=== PATIENT | female | born 1985 | race Hispanic/Latino ===

== ENCOUNTER 2016-11-20 00:36 | Observation (INO) | payer MEDICAID ==
[2016-11-20 01:16] LABS: ALB/GLOB RATIO 1.2 (1.0-2.1); ALBUMIN 4.1 g/dL (3.5-5.0); ALT/SGPT 65 U/L (9-52); AST/SGOT 65 U/L (14-36); BLOOD UREA NITROGEN 13 mg/dl (7-17); CALCIUM 8.6 mg/dL (8.4-10.2); GFR AFRICAN-AMERICAN > 60; GFR NON-AFRICAN AMERICAN > 60
--- NOTE | 2016-11-20 01:29 | ED PDOC ---
HPI: Psych/Substance Abuse Time Seen by Provider: 11/20/16 00:40 Chief Complaint (Nursing): Alcohol Ingestion Chief Complaint (Provider): intoxication ED Caveat: Intoxicated, Other (unwilling to answer questions ) History Per: Patient History/Exam Limitations: intoxication, other (unwilling to answer questions ) Onset/Duration Of Symptoms: Mins Current Symptoms Are (Timing): Still Present Additional Complaint(s): 31yo female presents to the ED for eval of public intoxication with possible drug abuse. Patient unwilling to answer questions. No medical or psychiatric complaints. Past Medical History Reviewed: Historical Data, Nursing Documentation, Vital Signs, Unable To Obtain (unwilling to answer questions ) Vital Signs: Last Vital Signs Temp 98.5 F 11/20/16 00:40 Pulse 82 11/20/16 00:40 Resp 17 11/20/16 00:40 BP 106/65 11/20/16 00:40 Pulse Ox 99 11/20/16 00:40 - Family History Family History: States: No Known Family Hx - Home Medications Home Medications: Ambulatory Orders Medication Instructions Recorded Unobtainable 11/20/16 - Allergies Allergies/Adverse Reactions: Allergies Allergy/AdvReac Type Severity Reaction Status Date / Time Unobtainable Allergy Verified 11/20/16 00:45 Review of Systems Review Of Systems: ROS cannot be obtained secondary to pt's inabilty to answer questions. (unwilling to answer questions) Physical Exam - Reviewed Nursing Documentation Reviewed: Yes Vital Signs Reviewed: Yes - Physical Exam Appears: Positive for: Well, No Acute Distress Head Exam: Positive for: ATRAUMATIC, NORMAL INSPECTION, NORMOCEPHALIC Skin: Positive for: Normal Color, Warm, Dry Eye Exam: Positive for: Normal appearance, EOMI, PERRL ENT: Positive for: Normal ENT Inspection Neck: Positive for: Normal, Painless ROM, Supple Cardiovascular/Chest: Positive for: Regular Rate, Rhythm. Negative for: Murmur , Tachycardia Respiratory: Positive for: Normal Breath Sounds. Negative for: Wheezing, Respiratory Distress Gastrointestinal/Abdominal: Positive for: Normal Exam, Soft. Negative for: Tenderness Back: Positive for: Normal Inspection Extremity: Positive for: Normal ROM. Negative for: Deformity, Swelling Neurologic/Psych: Negative for: Alert (somnolent but arousable ) - Laboratory Results Result Diagrams: 11/20/16 01:05 11/20/16 01:05 - ECG O2 Sat by Pulse Oximetry: 99 Pulse Ox Interpretation: Normal (RA) Medical Decision Making Medical Decision Makin: Impression: 31yo intoxicated female Plan: Labs reassess 0200: Blood alcohol level at 637. CT head and banana bag ordered. Case discussed with Dr. Earl for obs med/surg placement. Dx: alcohol intoxication fair Scribe Attestation: Documented by Pravin Garcia acting as a scribe for Murphy Gray MD. Provider Scribe Attestation: All medical record entries made by the Scribe were at my direction and personally dictated by me. I have reviewed the chart and agree that the record accurately reflects my personal performance of the history, physical exam, medical decision making, and the department course for this patient. I have also personally directed, reviewed, and agree with the discharge instructions and disposition. Disposition - Clinical Impression Clinical Impression: Alcohol intoxication - Patient ED Disposition Is Patient to be Admitted: Yes Discussed With : Rivas Earl - Disposition Disposition Time: 02:00 Condition: FAIR - Pt Status Changed To: Hospital Disposition Of: Observation
[2016-11-20 01:46] LABS: BASO # 0.1 K/uL (0.0-0.2); BASO % 1.3 % (0.0-2.0); EOS # 0.2 K/uL (0.0-0.7); EOS % 2.4 % (0.0-4.0); HEMOGLOBIN 12.2 g/dL (12.0-16.0); LYMPH # 3.9 K/uL (1.0-4.3); LYMPH % 43.8 % (20.0-40.0); MEAN CELL VOLUME 103.2 fl (81.0-99.0); MEAN CORPUSCULAR HEMOGLOBIN 35.3 pg (27.0-31.0); MEAN CORPUSCULAR HGB CONC 34.2 g/dL (33.0-37.0); MEAN PLATELET VOLUME 7.5 fl (7.2-11.7); MONO # 0.5 K/uL (0.0-0.8); MONO % 5.7 % (0.0-10.0); NEUT # 4.1 K/uL (1.8-7.0); NEUT % 46.8 % (50.0-75.0); NRBC % 0.2 % (0.0-0.0); RBC 3.45 Mil/uL (3.80-5.20); RED CELL DISTRIBUTION WIDTH 14.8 % (11.5-14.5); WHITE BLOOD COUNT 8.8 K/uL (4.8-10.8)
[2016-11-20] MEDS ORDERED: Multivitamin (MVI) 10 ML, Folic Acid 1 MG, Thiamine 100 MG in Dextrose 5%/0.45% NS 1,00... IV ONE (01:55)
[2016-11-20 02:22] LABS: BARBITURATES, UR NEGATIVE (NEGATIVE)
[2016-11-20 02:23] LABS: BENZODIAZEPINES, UR NEGATIVE (NEGATIVE)
[2016-11-20 02:25] LABS: OPIATES, UR NEGATIVE (NEGATIVE)
[2016-11-20 02:26] LABS: PHENCYCLIDINE, UR NEGATIVE (NEGATIVE)
--- NOTE | 2016-11-20 02:45 | CP.PCM.HP ---
History of Present Illness - History of Present Illness History of Present Illness: PCP: Unable to obtain Chief complaint: Public Intoxication HPI: The hx is obtained from the Medical records as the patient is very sleepy and refusing to talk. She is a 31 years old female brought to the ED by the police who found her sleeping on the train with Alcohol and other Paraphernalias found on the scene.In the ED the patient responded to questioning but refused to answer Questions. No apparent medical complaints. PMH: Unobtainable because of patient's condition PSH: Unobtainable SH: Unknown Smoking and Alcohol Hx , Unknown Illegal drug hx, Fh: Unknown family hx Allergies: Unknown allergies Present on Admission - Present on Admission Any Indicators Present on Admission: No History of DVT/PE: No History of Uncontrolled Diabetes: No Urinary Catheter: No Decubitus Ulcer Present: No Review of Systems - Review of Systems Systems not reviewed;Unavailable: Altered Mental Status, Intoxicated Review of Systems: Review of systems is limited because the patient is Intoxicated Past Patient History - Past Social History Smoking Status: Unknown If Ever Smoked Alcohol: Occasional Home Situation {Lives}: With Family - CARDIAC Hx Cardiac Disorders: No (unknown cardiac hx) - PULMONARY Hx Respiratory Disorders: No (Unknown Pulmonary hx) - NEUROLOGICAL Hx Neurological Disorder: No Hx Alzheimer's Disease: Yes (Unknown pulmonary hx) - HEENT Hx HEENT Problems: No (Unknown HEENT hx) - ENDOCRINE/METABOLIC Other/Comment: unknown endocrine hx - PSYCHIATRIC Other/Comment: Unknown psychiatric hx - SURGICAL HISTORY Hx Surgeries: No (No known surgeries) - ANESTHESIA Hx Anesthesia: No (Unknown surgery hx) Meds Allergies/Adverse Reactions: Allergies Allergy/AdvReac Type Severity Reaction Status Date / Time Unobtainable Allergy Verified 11/20/16 00:45 Physical Exam - Head Exam Head Exam: NORMOCEPHALIC - Eye Exam Additional comments: left eye with subconjunctival bleed - ENT Exam ENT Exam: Mucous Membranes Dry, Mucous Membranes Moist, Normal Exam, Normal External Ear Exam - Neck Exam Neck exam: Positive for: Normal Inspection. Negative for: Lymphadenopathy, Meningismus - Respiratory Exam Respiratory Exam: Rales. absent: Rhonchi, Wheezes - Cardiovascular Exam Cardiovascular Exam: REGULAR RHYTHM, RRR, +S1, +S2 - GI/Abdominal Exam GI & Abdominal Exam: Normal Bowel Sounds, Soft. absent: Organomegaly - Rectal Exam Rectal Exam: Deferred - Extremities Exam Extremities exam: Positive for: normal inspection. Negative for: joint swelling , pedal edema - Back Exam Back exam: NORMAL INSPECTION - Neurological Exam Neurological exam: CN II-XII Intact Additional comments: Very sleepy, opens eyes and goes back to sleep. no facial droop, pupils 4mm reacting well to light - Skin Skin Exam: Intact, Normal Color, Warm Results - Vital Signs Recent Vital Signs: Last Vital Signs Temp 98.5 F 11/20/16 00:40 Pulse 82 11/20/16 00:40 Resp 17 11/20/16 00:40 BP 106/65 11/20/16 00:40 Pulse Ox 99 11/20/16 02:13 - Labs Result Diagrams: 11/20/16 01:05 11/20/16 01:05 Labs: Laboratory Results - last 24 hr 11/20/16 11/20/16 11/20/16 01:05 01:05 02:05 WBC 8.8 RBC 3.45 L Hgb 12.2 Hct 35.6 MCV 103.2 H MCH 35.3 H MCHC 34.2 RDW 14.8 H Plt Count 392 MPV 7.5 Neut % (Auto) 46.8 L Lymph % (Auto) 43.8 H [place] % (Auto) 5.7 Eos % (Auto) 2.4 Baso % (Auto) 1.3 Neut # 4.1 Lymph # 3.9 [place] # 0.5 Eos # 0.2 Baso # 0.1 Sodium 152 H Potassium 3.3 L Chloride 110 H Carbon Dioxide 23 Anion Gap 22 H BUN 13 Creatinine 0.6 L Est GFR ( Amer) > 60 Est GFR (Non-Af Amer) > 60 Random Glucose 131 H Calcium 8.6 Total Bilirubin 0.5 AST 65 H ALT 65 H Alkaline Phosphatase 105 Total Protein 7.3 Albumin 4.1 Globulin 3.3 Albumin/Globulin Ratio 1.2 Urine Opiates Screen Negative Urine Methadone Screen Negative Ur Barbiturates Screen Negative Ur Phencyclidine Scrn Negative Ur Amphetamines Screen Negative U Benzodiazepines Scrn Negative U Oth Cocaine Metabols Negative U Cannabinoids Screen Negative Alcohol, Quantitative 637 H* - Imaging and Cardiology CXR Status: Image reviewed by me Additional comment: No infiltrate CT scan - head Status: Image reviewed by me Additional comment: No intracraneal bleed. Assessment & Plan - Assessment and Plan (Free Text) Assessment: #. Alcohol Intoxication #. Hypernatremia #. Hypokalemia Plan: 31 years old female brought to the ED by the police who [place] the train with Alcohol and other Paraphernalias found on the scene.In the ED the patient responded to questioning but refused to answer Questions. No apparent medical complaints. #. Alcohol Intoxication - Banana bag with Thiamine, Folic Acid and Multivitamin - IV fluids with D5 1/2 NS - Follow Alcohol level - follow HIV antibodies - Alcohol withdrawal precaution with [facility] protocol - Ativan PRN agitation --#. left subconjunctival hemorrhage #. Hypernatremia - IV Fluid with 1/2NS D5 - Follow electrolytes #. Hypokalemia - follow electrolytes #. DVT precaution with SCD: #. Code Status: Full - Date & Time Date: 11/20/16 Time: 02:44
[2016-11-20] MEDS ORDERED: Potassium Chloride 20 MEQ in Dextrose 5%/0.45% NS 1,000 ML IV SCH (03:30)
[2016-11-20] MEDS ORDERED: Potassium Ch 20mEq in D5-1/2NS 1,000 ML IV SCH (03:30)
--- NOTE | 2016-11-20 08:49 | CT ---
PROCEDURE: CT Head Without Contrast HISTORY: Head injury COMPARISON: None available. TECHNIQUE: Axial computed tomography images were obtained through the head/brain without intravenous contrast. Radiation dose (DLP): 1162.01 mGy-cm. FINDINGS: There is normal parenchymal density. There is no acute intracranial hemorrhage, territorial infarction, mass, mass effect or abnormal extra-axial fluid collection. Charles-white matter differentiation is preserved. There is normal density in the large dural venous sinuses. The ventricles are normal in size, shape, and configuration. There is no calvarial fracture or extracranial soft tissue swelling. The included paranasal sinuses and mastoid air cells are clear. Both globes and orbits are within normal limits. IMPRESSION: No acute intracranial abnormality. A preliminary report was provided by [employer] services.
[2016-11-20] MEDS ORDERED: Thiamine 100 mg/ml Inj IM SCH (09:00)
[2016-11-20] MEDS ORDERED: Pneumococcal 23-Valent Vaccine IM ONE (10:00)
--- NOTE | 2016-11-20 11:20 | RAD ---
HISTORY: admit COMPARISON: No prior. FINDINGS: LUNGS: The lungs are clear. PLEURA: No significant pleural effusion identified, no pneumothorax apparent. CARDIOVASCULAR: Normal. OSSEOUS STRUCTURES: There is an acute mildly displaced fracture in the right posterior 5th rib. VISUALIZED UPPER ABDOMEN: Normal. OTHER FINDINGS: None. IMPRESSION: Acute mildly displaced fracture in the right posterior 5th rib. No pneumothorax.
--- NOTE | 2016-11-20 11:27 | CARD ---
APPROVED REPORT EKG Measurement Heart [id number] NE [id number] CIx105 <Conclusion> Normal sinus rhythm Normal ECG
[2016-11-20 11:50] LABS: BLOOD UREA NITROGEN 15 mg/dl (7-17); CALCIUM 8.1 mg/dL (8.4-10.2); GFR AFRICAN-AMERICAN > 60; GFR NON-AFRICAN AMERICAN > 60
[2016-11-20 12:23] VITALS: BP 101/66; PULSE 86; RESP 20; TEMP 97.9; O2SAT 95
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
== END 2016-11-20 14:49 | disposition home or self-care (01) ==
LOC: H.ER 00:36 → H.ERHOLD 01:56 → H.TEL 04:29
PROVIDERS: ADMIT Internal Medicine; ATTEND Internal Medicine
DX: F10.129 Alcohol abuse with intoxication, unspecified (principal); Y90.8 Blood alcohol level of 240 mg/100 ml or more; E87.0 Hyperosmolality and hypernatremia; E87.6 Hypokalemia; Z23 Encounter for immunization; S22.49XS Multiple fractures of ribs, unspecified side, sequela; Y04.2XXS Assault by strike against or bumped into by another person, sequela